=== PATIENT | male | born 1950 | race Caucasian/White ===

== ENCOUNTER 2020-06-26 18:18 | Inpatient (IN) | payer BC, OTHER ==
[~2020-06-26] VITALS: Ht 177.8 cm; Wt 61.2 kg
--- NOTE | 2020-06-26 19:01 | NUR ---
PT AAOX4. AMBULATORY, BIBPA FOR PSYCH EVAL FOR INCREASED EP OF SUICIDAL THOUGHTS, PT DOES NOT HAVE A PLAN. PT PLACED ON MONITOR AND PULSE OX. AWAITING MD FOR EVAL AND ORDERS.
[2020-06-26 19:45] LABS: BASOPHILS % (AUTO) 0.7 % (0.0-2.0); EOSINOPHILS % (AUTO) 3.2 % (0.0-6.0); HEMATOCRIT 39 % (39-51); HEMOGLOBIN 13.2 g/dL (13.5-17.5); LYMPHOCYTES # (AUTO) 2.2 /CMM (0.8-4.8); LYMPHOCYTES % (AUTO) 41.6 % (20.0-44.0); MEAN CORPUSCULAR HGB CONC 34 g/dl (31.0-36.0); MEAN CORPUSCULAR VOLUME 96 fL (80-96); MONOCYTES # (AUTO) 0.5 /CMM (0.1-1.30); MONOCYTES % (AUTO) 9.7 % (2.0-12.0); NEUTROPHILS # (AUTO) 2.3 /CMM (1.8-8.9); NEUTROPHILS % (AUTO) 44.8 % (43.0-81.0); PLATELET COUNT (AUTO) 202 /CMM (150-450); RED BLOOD CELL COUNT(AUTO) 4.11 MIL/uL (4.5-6.0); WHITE BLOOD COUNT (AUTO) 5.2 K/uL (4.3-11.0)
[2020-06-26 19:55] LABS: CALCIUM, SERUM 8.5 mg/dL (8.5-10.1); CARBON DIOXIDE 32 mmol/L (21-32); CHLORIDE 101 mmol/L (98-107); CREATININE 0.8 mg/dL (0.6-1.3); GLUCOSE 98 mg/dL (74-106); SODIUM SERUM 137 mmol/L (136-145); UREA NITROGEN, BLOOD 17 mg/dL (7-18)
[2020-06-26 20:01] LABS: ACETAMINOPHEN 0 ug/ml (10-30); ALANINE AMINOTRANSFERASE 49 U/L (12-78); ALBUMIN 3.6 g/dL (3.4-5.0); ALCOHOL, BLOOD < 3 mg/dL (0-0); ALKALINE PHOSPHATASE 99 U/L (46-116); ASPARTATE AMINOTRANSFERASE 34 U/L (15-37); BILIRUBIN,DIRECT 0.1 mg/dL (0.0-0.2); BILIRUBIN,TOTAL 0.3 mg/dL (0.2-1.0); TOTAL PROTEIN, SERUM 7.2 g/dL (6.4-8.2)
--- NOTE | 2020-06-26 20:08 | NUR ---
urine collected and sent to lab
[2020-06-26 20:16] LABS: APPEARANCE,URINE Clear (CLEAR); BILIRUBIN,URINE Negative (NEGATIVE); BLOOD, URINE Negative Ery/uL (NEGATIVE); COLOR,URINE Yellow (YELLOW); KETONES,URINE Negative (NEGATIVE); LEUKOCYTE ESTERASE ,URINE Negative (NEGATIVE); NITRITE, URINE Negative (NEGATIVE); PROTEIN,URINE Negative (NEGATIVE); UGLUCOSE Negative (NEGATIVE); UROBILINOGEN,URINE 0.2 EU/dL (0.2)
--- NOTE | 2020-06-26 20:39 | NUR ---
ZENIAID SWABBED, SENT TO LAB.
--- NOTE | 2020-06-26 21:40 | NUR ---
LAB CALLED REGARDING NEGATIVE COVID RESULT.
--- NOTE | 2020-06-26 22:01 | NUR ---
PT RESTING COMFORTABLY. VSS.
[2020-06-26] MEDS ORDERED: DIVA-78 PO (22:25)
[2020-06-26] MEDS ORDERED: PHEN125O9 PO (22:25)
--- NOTE | 2020-06-26 22:26 | NUR ---
MED LIST UPDATED.
--- NOTE | 2020-06-26 22:57 | NUR ---
REPORT GIVEN TO VIRIDIANA ENCINAS FOR AWILDA
--- NOTE | 2020-06-26 23:09 | NUR ---
GPS ADMISSION NOTE, RECEIVED PATIENT FROM [facility]. PATIENT ARRIVED ON THIS UNIT AT 2309 VIA STRETCHER 1 WEB DESIGN INTERN ESCORT. PATIENT ADMITTED ON A 5150 HOLD FOR GD. PER HOLD PATIENT NOT RESPONDING TO QUESTIONS PROPERLY. PATIENT WAS TALKING OUT OF TERN. PATIENT WALKS OUT OF WHERE HE IS LIVING WITHOUT PERMISSION. PER REFERRAL PATIENT IS HAVING SUICIDAL IDEATIONS WITH NO PLAN. PATIENT HAS NO VIABLE PLAN FOR SELF CARE AT THIS TIME. THE 5150 WAS REVIEWED AND THE DOCUMENTATION IN THE 5150 HOLD APPEARS TO REFLECT THE PRESENTATION OF THE PATIENT. UPON FACE TO FACE ASSESSMENT PATIENT IS NOTED TO BEING HYPERVERBAL, DISHEVELED, DISORGANIZED, COOPERATIVE, AND NEEDS REDIRECTION. PATIENT IS CURRENTLY LYING IN BED AWAKE, HAS NO S/S OR COMPLAINTS OF PAIN. PATIENT IS DISPLAYING NO S/S OF APPARENT DISTRESS. PATIENT BREATHING IS UNLABORED WITH EQUAL RISE AND FALL OF THE CHEST. PATIENT IS ALERT AND ORIENTATED X 2 ON ROOM AIR. PATIENT ASSISTED WITH TURING AND REPOSITIONING Q2HR AND PRN FOR COMFORT AND CIRCULATION. PATIENT HAS NO NEEDS AT THIS TIME. PATIENT DENIES SUICIDE IDEATIONS AND HOMICIDAL IDEATIONS AT THIS TIME. PATIENT SIGNED ALL NECESSARY PAPER WORK. PATIENT ADVISED OF HIS HOLD AND PATIENT RIGHTS BOOKLET GIVEN. PATIENT IS UNDER THE PSYCHIATRIC CARE OF DR. GUAMAN AND THE MEDICAL CARE OF DR JACKSON. PATIENT BELONGINGS WERE INVENTORIED AND CHECKED FOR CONTRABAND. ALL CONTRABAND REMOVED AND STORED IN PATIENT HALLWAY LOCKER. PATIENT ADVANCED DIRECTIVES PREFERENCE, IMMUNIZATIONS QUESTIONER, NECESSARY PAPERWORK COMPLETED. PATIENT COOPERATED WITH SKIN ASSESSMENT. PATIENT REFUSED FLU SHOT PNA AT THIS TIME. PATIENT ORIENTATED TO ROOM, FLOOR, AND STAFF WITH ALL QUESTIONS ANSWERED. PATIENT EDUCATED ON THE USE OF THE CALL HARRISON. PATIENT BED SIDE RAILS ARE UP X 2 FOR SAFETY. PATIENT BED IS LOCKED, LOW AND I WILL CONTINUE TO MONITOR THIS PATIENT Q 15 MIN WITH THE HELP OF STAFF TO MAINTAIN SAFETY.
[2020-06-26 23:25] VITALS: BP 140/86
--- NOTE | 2020-06-26 23:25 | NUR ---
GPS RN NOTES: BLOOD SUGAR 92MG/DL.
[2020-06-27] MEDS ORDERED: BLOOD SUGAR DIAGNOSTIC 1 EACH STRIP IN ONE
[2020-06-27] MEDS ORDERED: clonazePAM 0.5 MG TABLET PO PRN
[2020-06-27] MEDS ORDERED: ACETAMINOPHEN 325 MG TABLET PO PRN
[2020-06-27] MEDS ORDERED: MAG HYDROX/AL HYDROX/SIMETH 30 ML UDC PO PRN
[2020-06-27] MEDS ORDERED: TEMAZEPAM 7.5 MG CAPSULE PO PRN
[2020-06-27] MEDS ORDERED: PHEN100C4 PO (01:48)
[2020-06-27] MEDS ORDERED: DIVA-78 PO (01:50)
--- NOTE | 2020-06-27 08:00 | NUR ---
received pt. in rm.quiet,isolative,no complaints.rn removed bandaid to laceration rt. forearm,cleansed and tegaderm applied.
[2020-06-27 08:06] VITALS: BP 148/93
[2020-06-27] MEDS: PHENYTOIN EXTENDED RELEASE 100 MG CAPSULE PO SCH ×2 (09:54→17:26)
[2020-06-27] MEDS: DIVALPROEX SODIUM 500 MG TABLET.DR PO SCH ×2 (09:54→17:26)
[2020-06-27] MEDS: OLANZAPINE 5 MG TABLET PO SCH (15:11)
[2020-06-27 16:20] VITALS: BP 129/88
--- NOTE | 2020-06-27 16:46 | NUR ---
no change in status,zyprexa started.
[2020-06-27 20:08] VITALS: BP 115/75
[2020-06-28 06:46] LABS: BASOPHILS % (AUTO) 0.6 % (0.0-2.0); EOSINOPHILS % (AUTO) 3.5 % (0.0-6.0); HEMATOCRIT 45 % (39-51); HEMOGLOBIN 14.6 g/dL (13.5-17.5); LYMPHOCYTES # (AUTO) 1.8 /CMM (0.8-4.8); LYMPHOCYTES % (AUTO) 32.1 % (20.0-44.0); MEAN CORPUSCULAR HGB CONC 33 g/dl (31.0-36.0); MEAN CORPUSCULAR VOLUME 96 fL (80-96); MONOCYTES # (AUTO) 0.4 /CMM (0.1-1.30); MONOCYTES % (AUTO) 6.3 % (2.0-12.0); NEUTROPHILS # (AUTO) 3.2 /CMM (1.8-8.9); NEUTROPHILS % (AUTO) 57.5 % (43.0-81.0); PLATELET COUNT (AUTO) 227 /CMM (150-450); RED BLOOD CELL COUNT(AUTO) 4.66 MIL/uL (4.5-6.0); WHITE BLOOD COUNT (AUTO) 5.6 K/uL (4.3-11.0)
[2020-06-28 06:47] LABS: CREATININE 0.7 mg/dL (0.6-1.3); POTASSIUM 4.4 mmol/L (3.5-5.1)
--- NOTE | 2020-06-28 07:06 | NUR ---
chief controller station closing notes pt woke up early around 5 am and seen doing his puzzle, calmed, cooperative and slept well. only noticed SUN'AQ . Ambulate by himslef but needs someone like standby for safety. be alarm still set for pt safety. no signs of any behavioral issue to report at this time. stable throughout the night . will continue Q 15 minutes monitoring for safety and behavior. will endorse to am nurse for continuity of care.
[2020-06-28 08:00] VITALS: BP 125/81
[2020-06-28] MEDS: DIVALPROEX SODIUM 500 MG TABLET.DR PO SCH ×2 (08:33→16:27)
[2020-06-28] MEDS: PHENYTOIN EXTENDED RELEASE 100 MG CAPSULE PO SCH ×2 (08:33→16:27)
[2020-06-28] MEDS: OLANZAPINE 5 MG TABLET PO SCH (08:33)
--- NOTE | 2020-06-28 09:00 | NUR ---
RN NOTE- PT QUIET DISORGANIZED, CONFUSED DENYING SI HI AH VH, PT ISOLATIVE THOUGH ENCOURAGED SHOWER AND GROOMING, PT AGREES. MED COMPLIANT, PO INTAKE GOOD
[2020-06-28 16:00] VITALS: BP 126/76
--- NOTE | 2020-06-28 19:52 | NUR ---
GPS RN OPENING NOTES PATIENT RECEIVED RESTING IN BED COMFORTABLY; A/OX2, BREATHING EVEN AND UNLABORED; TOLERATING ROOM AIR WELL; NO SOB NOTED; NO DISTRESS NOTED; PATIENT DENIES SI/HI AT THIS TIME; PATIENT EDUCATED ON USE OF CALL LIGHT; SAFETY PRECAUTIONS IMPLEMENTED; BED LOCKED IN LOW POSITION; SIDE RAILSX2; WILL CONTINUE TO MONITOR Q15 MINS WITH THE HELP OF STAFF TO MAINTAIN SAFETY
[2020-06-28 20:00] VITALS: BP 125/84
[2020-06-29 08:00] VITALS: BP 122/78
[2020-06-29] MEDS: OLANZAPINE 5 MG TABLET PO SCH (08:35)
[2020-06-29] MEDS: DIVALPROEX SODIUM 500 MG TABLET.DR PO SCH ×2 (08:35→16:48)
[2020-06-29] MEDS: PHENYTOIN EXTENDED RELEASE 100 MG CAPSULE PO SCH ×2 (08:35→16:48)
--- NOTE | 2020-06-29 09:00 | NUR ---
RN NOTE- DISORGANIZED, CONFUSED DENYING SI HI AH VH, PT ISOLATIVE THOUGH PT CONTINUES TO BE MED COMPLIANT, PO INTAKE GOOD
--- NOTE | 2020-06-29 11:53 | NUR ---
Initial Discharge Plan: Pt currently rents a room in a house located at [address] [place] [address]; ([phone]). Per pt, he would like to return to his home. SW will work with the pt and the MD regarding appropriate discharge planning. SW will form a safe and proper discharge plan.
--- NOTE | 2020-06-29 11:53 | NUR ---
Atul Contact: TAB called the pts Re waite ([phone]), and confirmed that the pt can return to the room that he rents and that he is able to make his payments in a timely manner.
--- NOTE | 2020-06-29 14:53 | NUR ---
UR Note: TAB faxed a clinical to [facility] with attention to Sylvie Malcolm to the fax number: [phone].
[2020-06-29 16:00] VITALS: BP 135/91
[2020-06-29 19:51] VITALS: BP 147/84
[2020-06-29 20:09] VITALS: BP 147/84
[2020-06-30 08:00] VITALS: BP 137/90
[2020-06-30] MEDS: OLANZAPINE 5 MG TABLET PO SCH (08:19)
[2020-06-30] MEDS: DIVALPROEX SODIUM 500 MG TABLET.DR PO SCH ×2 (08:20→17:41)
[2020-06-30] MEDS: PHENYTOIN EXTENDED RELEASE 100 MG CAPSULE PO SCH ×2 (08:20→17:41)
[2020-06-30 16:00] VITALS: BP 138/75
[2020-06-30 20:03] VITALS: BP 120/77
[2020-06-30] MEDS: MAGNESIUM HYDROXIDE 30 ML UDC PO PRN (23:02)
--- NOTE | 2020-06-30 23:04 | NUR ---
GPS RN NOTE: CONSTIPATION PT WOKE UP C/O OF INABILITY TO DEFECATE FOR THE LAST SEVERAL DAYS, OFFERED PRUNE JUICE, PT DENIES OFFERED MILK OF MAGNESIA PT ACCEPTED, ADMIN MILK OF MAGNESIA PRN AT @ 2302, TOLERATED WELL, WILL CONTINUE TO MONITOR Q15MIN FOR SAFETY AND BEHAVIOR.
[2020-07-01 08:00] VITALS: BP 116/86
[2020-07-01] MEDS: OLANZAPINE 5 MG TABLET PO SCH (09:51)
[2020-07-01] MEDS: PHENYTOIN EXTENDED RELEASE 100 MG CAPSULE PO SCH ×2 (09:52→18:35)
[2020-07-01] MEDS: DIVALPROEX SODIUM 500 MG TABLET.DR PO SCH ×2 (09:52→18:35)
--- NOTE | 2020-07-01 12:16 | NUR ---
UR Note: TAB faxed a clinical to [facility] with attention to Sylvie Malcolm to the fax number: [phone].
--- NOTE | 2020-07-01 15:34 | NUR ---
Individual Intervention with the pt: SW attempted to conduct an individual intervention with the pt but the pts thought process was disorganized. Pts speech was tangential and SW was unable to discuss the pts goals.
[2020-07-01 16:00] VITALS: BP 152/91
[2020-07-01] MEDS ORDERED: INFLUENZA VACCINE 2020-21 0.5 ML DISP.SYRIN IM ONE (16:00)
[2020-07-01 20:00] VITALS: BP 149/89
--- NOTE | 2020-07-01 23:26 | NUR ---
GPS RN NOTE TRANSFERRED PT UPSTAIRS FOR OVERFLOW @2320, , PT IS NOW IN 312B, PT IS AWAKE A/O X2, CALM, COMPLIANT, COOPERATIVE, HAS NO NEW CONCERNS. GAVE REPORT TO HUANG MCGRAW AND HOLD AND CHART IS IN NURSING STATION WITH CHARGE.
--- NOTE | 2020-07-01 23:30 | NUR ---
GPS OV RN NOTES RECEIVED GPS OVERFLOW BY WHEELCHAIR A/O X2,CALM,MED COMPLIANT,HARD OF HEARING,AMBULATE WITH WALKER,CONTINENT,BRP.ON 5250 HOLD, UP ON 07/13/20.NO IV SALINE LOCK PER GPS PROTOCOL.WILL CONTINUE TO MONITOR BEHAVIOR.SITTER AT BEDSIDE.
--- NOTE | 2020-07-02 01:22 | NUR ---
GPS ZITA ENCINAS NOTES C/O ITCHINESS,VISTARIL 25MG PO GIVEN ORDERED. Addendum: 07/02/20 at 0239 by ANA HAMEED RN NOTES NOT FOR THIS PATIENT
--- NOTE | 2020-07-02 06:20 | NUR ---
GPS RN NOTES SLEPT WELL,CALM AND FOLLOW INSTRUCTION.SITTER AT BEDSIDE.WILL CONTINUE TO MONITOR BEHAVIOR AND MANAGE ACCORDINGLY.WILL ENDORSE TO DAY NURSE FOR FURTHER MONITORING.
--- NOTE | 2020-07-02 07:16 | NUR ---
GPS OVERFLOW RN OPENING NOTES PATIENT RECEIVED AWAKE IN BED IN NO ACUTE SIGNS OF DISTRESS. 1:1 SITTER AT BEDSIDE. A/OX2, VERBALLY RESPONSIVE, QUIET, CALM WITH NO C/O PAIN OR DISCOMFORTS AT THIS TIME. PATIENT ALSO DENIES SI/HI. ON ROOM AIR, BREATHING EVEN AND UNLABORED. SAFETY PRECAUTIONS IN PLACE: BED LOCKED AND IN LOW POSITION, SIDE RAILS UP X2 AND CALL LIGHT W/IN REACH. WILL CONTINUE TO MONITOR ACCORDINGLY.
[2020-07-02 08:00] VITALS: BP 131/78
[2020-07-02] MEDS: PHENYTOIN EXTENDED RELEASE 100 MG CAPSULE PO SCH ×2 (08:36→16:38)
[2020-07-02] MEDS: OLANZAPINE 5 MG TABLET PO SCH (08:36)
[2020-07-02] MEDS: DIVALPROEX SODIUM 500 MG TABLET.DR PO SCH ×2 (08:36→16:38)
--- NOTE | 2020-07-02 08:36 | NUR ---
RN NOTES PT JUST HAD SHOWER WITH NO PROBLEM NOTED. WILL CONTINUE TO MONITOR
[2020-07-02 16:00] VITALS: BP 124/76
--- NOTE | 2020-07-02 18:40 | NUR ---
GPS OVERFLOW RN CLOSING NOTES PATIENT IN BED RESTING QUIETLY. HOB ELEVATED. 1:1 SITTER AT BEDSIDE. A/OX2, VERBALLY RESPONSIVE. PATIENT ALSO DENIES SI/HI. ON ROOM AIR, BREATHING EVEN AND UNLABORED, NO SOB NOTED DURING THE DAY. ALL NEEDS AND CARE ANTICIPATED AND MET. SAFETY PRECAUTIONS KEPT IN PLACE: BED LOCKED AND IN LOW POSITION, SIDE RAILS UP X2 AND CALL LIGHT W/IN REACH. WILL ENDORSE TO FIELD SERVICES ANALYST NURSE FOR AWILDA.
--- NOTE | 2020-07-02 19:30 | NUR ---
advanced practice psychiatric nurse initial notes received report from am nurse and seen pt in bed awake and alert watching TV at this time. denies any discomfort. He's calmed , cooperative, disorganized, [place] but complaint with the staff. aware where he at . kept him comfortable at all times. will continue monitoring. sitter at the bedside for safety.
--- NOTE | 2020-07-03 | NUR ---
machinist supervisor outside notes pt sleeping at this time. not in any distress noted. kept him warm and comfortable at all times. will continue monitoring. sitter at the bedside.
--- NOTE | 2020-07-03 07:12 | NUR ---
GPS OVERFLOW RN OPENING NOTES RECEIVED PT IN BED AWAKE, A/O X2.ABLE TO MAKE NEEDS KNOWN, QUIET, CALM AND DENIES PAIN OR DISCOMFORTS AT THIS TIME. PATIENT ALSO DENIES SI/HI. 1:1 SITTER AT BEDSIDE FOR CLOSE MONITORING. ON ROOM AIR, BREATHING EVEN AND UNLABORED. SAFETY PRECAUTIONS IN PLACE: BED LOCKED AND IN LOW POSITION, SIDE RAILS UP X2 AND CALL LIGHT W/IN REACH. WILL CONTINUE TO MONITOR ACCORDINGLY.
[2020-07-03 08:00] VITALS: BP 131/78
[2020-07-03] MEDS: DIVALPROEX SODIUM 500 MG TABLET.DR PO SCH ×2 (08:18→16:56)
[2020-07-03] MEDS: OLANZAPINE 5 MG TABLET PO SCH (08:18)
[2020-07-03] MEDS: PHENYTOIN EXTENDED RELEASE 100 MG CAPSULE PO SCH ×2 (08:18→16:56)
--- NOTE | 2020-07-03 13:23 | NUR ---
UR Note: TAB faxed a clinical to [facility] with attention to Mattie to the fax number: [phone].
[2020-07-03 16:00] VITALS: BP 105/76
--- NOTE | 2020-07-03 18:57 | NUR ---
GPS OVERFLOW RN CLOSING NOTES PATIENT AWAKE AND RESTING IN BED. HOB ELEVATED. 1:1 SITTER AT BEDSIDE FOR CLOSE MONITORING. A/OX2, VERBALLY RESPONSIVE. LEFT EAR HEARING AID IN PLACE. PATIENT ALSO DENIES SI/HI. ON ROOM AIR, BREATHING EVEN AND UNLABORED, NO SOB NOTED DURING THE DAY. ALL NEEDS AND CARE ANTICIPATED AND MET. SAFETY PRECAUTIONS KEPT IN PLACE: BED LOCKED AND IN LOW POSITION, SIDE RAILS UP X2 AND CALL LIGHT W/IN REACH. WILL ENDORSE TO SUPERVISOR NETWORK CONTROL OPERATORS NURSE FOR AWILDA.
--- NOTE | 2020-07-03 19:15 | NUR ---
MS RN OPENING NOTES: RECEIVED PATIENT IN BED,ASLEEP. NO S/S OF DISTRESS NOTED. CALL LIGHT WITHIN REACH. BED IN LOWEST AND LOCKED POSITION. WITH THE 1:1 SITTER AT THE BEDSIDE.
[2020-07-03 20:00] VITALS: BP 128/66
--- NOTE | 2020-07-04 06:36 | NUR ---
RN CLOSING NOTES: PATIENT RESTING IN BED, ASLEEP, AROUSABLE. CALL LIGHT WITHIN REACH. BED IN LOWEST AND LOCKED POSITION. NO S/S OF DISTRESS NOTED. NO COMPLAIN OF PAIN. WITH THE 1:1 SITTER AT THE BEDSIDE. PATIENT IS CALM DURING THE SHIFT. RESTED THROUGHOUT THE NIGHT.
--- NOTE | 2020-07-04 09:00 | NUR ---
RN NOTE: Patient endorsed by HUANG Sawant. In bed, awake, alert and oriented x3. Able to make needs known. On room air and tolerating well, saturation @ 98%. No suicidal/self harm ideation expressed when asked. Responds appropriately to questions. Sitter at bedside. Call light in reach. Bed locked, low and at semi mota's position. Side rails up x2. Safety ensured and observed. Will continue to monitor.
[2020-07-04] MEDS: DIVALPROEX SODIUM 500 MG TABLET.DR PO SCH ×2 (09:04→17:12)
[2020-07-04] MEDS: PHENYTOIN EXTENDED RELEASE 100 MG CAPSULE PO SCH ×2 (09:04→17:12)
[2020-07-04] MEDS: OLANZAPINE 5 MG TABLET PO SCH (09:04)
[2020-07-04 18:33] VITALS: BP 126/81
--- NOTE | 2020-07-04 18:56 | NUR ---
RN CLOSING NOTE: No acute changes noted on shift. Patient remains in bed and resting. Awake, alert and oriented x4. on RA saturating well @ 99%, No SOB and not in respiratory distress. No pain noted nor reported. Sitter at bedside. Call light in reach. Bed locked, low and at semi-mota's position. Side rails up x3. All due medications given. Needs attended and met. Safety ensured and observed. Will endorse to oncoming shift for AWILDA.
--- NOTE | 2020-07-04 19:30 | NUR ---
GPS RN NOTE RECEIVED PATIENT AWAKE, SEATED IN BED, WITH SAIGE LAM AT BEDSIDE. NO S/S OR COMPLAINTS OF PAIN AT THIS TIME. PATIENT IS DISPLAYING NO S/S OF APPARENT DISTRESS AT THIS TIME. PATIENT'S BREATHING IS UNLABORED WITH EQUAL RISE AND FALL OF THE CHEST. PATIENT IS ALERT AND ORIENTED X 2-3 ON ROOM AIR WITH SPO2 96%. PATIENT IS COMPLIANT WITH MEDICATION, DISORGANIZED, RESPONDING TO INTERNAL STIMULI, ANXIOUS AND COOPERATIVE. PATIENT VERBALLY DENIES SUICIDE IDEATIONS AND HOMICIDAL IDEATIONS AT THIS TIME. PATIENT ASSISTED WITH TURNING AND REPOSITIONING Q2HR AND PRN FOR COMFORT AND CIRCULATION. PATIENT HAS NO NEEDS AT THIS TIME. PATIENT EDUCATED ON THE USE OF THE CALL LIGHT. PATIENT BED SIDE RAILS UP X 2 FOR SAFETY, BED IS LOCKED AND LOW. WILL CONTINUE TO MONITOR Q15 MINS WITH THE HELP OF STAFF TO MAINTAIN SAFETY.
[2020-07-04 20:00] VITALS: BP 111/70
[2020-07-04] MEDS: MAGNESIUM HYDROXIDE 30 ML UDC PO PRN (22:54)
[2020-07-05 04:00] VITALS: BP 120/75
--- NOTE | 2020-07-05 07:47 | NUR ---
GPS/RN OPENING NOTES RECEIVED PATIENT IS IN BED. PATIENT IN NO APPARENT RESPIRATORY DISTRESS NOTED. NO COMPLAINED OF PAIN AT THIS TIME. PATIENT IS CALM AND VERBALIZED NO SUICIDAL OR HOMICIDAL SUICIDAL IDEATIONS AT THIS TIME. WILL CONTINUE TO MONITOR.
[2020-07-05] MEDS: PHENYTOIN EXTENDED RELEASE 100 MG CAPSULE PO SCH ×2 (09:00→18:01)
[2020-07-05] MEDS: DIVALPROEX SODIUM 500 MG TABLET.DR PO SCH ×2 (09:00→18:01)
[2020-07-05] MEDS: OLANZAPINE 5 MG TABLET PO SCH (09:00)
--- NOTE | 2020-07-05 14:42 | NUR ---
GPS/RN NOTES PATIENT TRANSFERRED TO GPS FLOOR. GIVE REPORT TO ANDIE ENCINAS FOR AWILDA.
[2020-07-05 16:00] VITALS: BP 124/65
[2020-07-05 19:58] VITALS: BP 130/81
[2020-07-06 08:00] VITALS: BP 132/85
--- NOTE | 2020-07-06 09:14 | NUR ---
UR Note: TAB faxed a clinical to [facility] with attention to Mattie to the fax number: [phone].
[2020-07-06] MEDS: PHENYTOIN EXTENDED RELEASE 100 MG CAPSULE PO SCH ×2 (12:04→16:40)
[2020-07-06] MEDS: DIVALPROEX SODIUM 500 MG TABLET.DR PO SCH ×2 (13:30→16:40)
--- NOTE | 2020-07-06 15:44 | NUR ---
Individual Intervention: This commercial lines underwriter met with pt for brief counseling. This commercial lines underwriter discussed pt's plan. Pt stated he would want to return back home. Pt appeared less paranoid and was interacting. Pt stated his sandraloramarjit Grimaldo is his support. This commercial lines underwriter actively listened.
[2020-07-06 16:00] VITALS: BP 140/86
[2020-07-06 19:52] VITALS: BP 116/70
[2020-07-07 08:00] VITALS: BP 119/85
--- NOTE | 2020-07-07 08:23 | NUR ---
UR Note: TAB faxed a clinical to [facility] with attention to Mattie to the fax number: [phone].
[2020-07-07] MEDS: OLANZAPINE 5 MG TABLET PO SCH (09:52)
[2020-07-07] MEDS: PHENYTOIN EXTENDED RELEASE 100 MG CAPSULE PO SCH ×2 (09:52→18:32)
[2020-07-07] MEDS: DIVALPROEX SODIUM 500 MG TABLET.DR PO SCH ×3 (09:52→18:32)
--- NOTE | 2020-07-07 11:15 | NUR ---
UR Note: This typewriter assembly and parts inspector has been faxing clinicals to [facility] with attention to Mattie (F:[phone]) per case hardener Molly's notes. AUTH: [id number] This typewriter assembly and parts inspector contacted other case hardener Sylvie Cm ([phone]) and left a voicemail to contact this typewriter assembly and parts inspector. This typewriter assembly and parts inspector also faxed clinicals to Sylvie.
--- NOTE | 2020-07-07 12:41 | NUR ---
UR Note: This ticket writer received a phone call from Mattie renal case manager from [employer] ([phone]) (P:[phone]) who stated she will authorize until August 09. AUTH: [id number]
[2020-07-07 16:00] VITALS: BP 152/99
[2020-07-07 20:02] VITALS: BP 141/88
[2020-07-08 08:00] VITALS: BP 131/94
--- NOTE | 2020-07-08 08:27 | NUR ---
UR Note: This automotive service writer received a phone call from Mattie case fitter from [employer] ([phone]) (P:[phone])sent daily clinicals. AUTH: [id number]
[2020-07-08] MEDS: OLANZAPINE 5 MG TABLET PO SCH (08:43)
[2020-07-08] MEDS: DIVALPROEX SODIUM 500 MG TABLET.DR PO SCH ×3 (08:43→17:10)
[2020-07-08] MEDS: PHENYTOIN EXTENDED RELEASE 100 MG CAPSULE PO SCH ×2 (08:43→17:10)
--- NOTE | 2020-07-08 11:44 | NUR ---
Atul Contact: TAB called the pts Re waite ([phone]) and notified that pt will return back home on 07/10. She is agreeable.
[2020-07-08 16:00] VITALS: BP 129/94
--- NOTE | 2020-07-08 18:06 | NUR ---
GPS RN NOTES PT AWAKE IN BED AT THIS. PT REMAINED STABLE THROUGHOUT SHIFT. PT KEPT CLEAN AND DRY. ALL CARE, NEEDS, MEDICATIONS AND TREATMENT ADMINISTERED ANTICIPATED PER ORDER. SAFETY PRECAUTIONS IN PLACE AND MAINTAINED AT ALL TIMES. BED IN LOWEST LOCKED POSITION, HOB ELEVATED, SIDE RAILS UP X 2, CALL LIGHT WITHIN REACH.
[2020-07-08 19:41] VITALS: BP 107/68
[2020-07-09 08:00] VITALS: BP 141/92
[2020-07-09] MEDS: OLANZAPINE 5 MG TABLET PO SCH (08:27)
[2020-07-09] MEDS: PHENYTOIN EXTENDED RELEASE 100 MG CAPSULE PO SCH ×2 (08:27→16:44)
[2020-07-09] MEDS: DIVALPROEX SODIUM 500 MG TABLET.DR PO SCH ×3 (08:27→16:44)
--- NOTE | 2020-07-09 09:18 | NUR ---
UR Note: This specification writer received a phone call from Mattie case resolution specialist from [employer] ([phone]) (P:[phone]) sent daily clinicals. AUTH: [id number]
[2020-07-09 16:00] VITALS: BP 121/78
[2020-07-09 19:38] VITALS: BP 130/83
--- NOTE | 2020-07-09 19:46 | NUR ---
GPS-RN NOTE: ANXIETY PATIENT C/O FEELING ANXIOUS. ADMINISTERED KLONOPIN 0.5MG PO ORDERED. WILL CONTINUE TO MONITOR FOR PATIENT'S SAFETY.
[2020-07-10 08:00] VITALS: BP 135/90
[2020-07-10] MEDS: PHENYTOIN EXTENDED RELEASE 100 MG CAPSULE PO SCH (08:00)
[2020-07-10] MEDS: OLANZAPINE 5 MG TABLET PO SCH (08:00)
[2020-07-10] MEDS: DIVALPROEX SODIUM 500 MG TABLET.DR PO SCH ×2 (08:00→12:03)
--- NOTE | 2020-07-10 08:37 | NUR ---
SW Discharge Note: Patient will be discharged home [address] [place] [address]; ([phone]) via taxi transportation at 12PM. Patients cheyanneamarjit Re ([phone]) is aware and will greet pt upon arrival. Upon discharge, patient appear to be calm, cooperative and happy to be going home. Patient appeared alert and oriented x3-4. Patient denies suicidal and homicidal ideation. Patient will follow up with (Psychiatrist) Dr. Vaibhav Dewitt located at [address] [place] [address]; ([phone]) on July 16 at 1PM via telehealth. Patient will follow-up with (Oil Refiner) Dr. Khadra Lemons located at [address] [place] [address]; ([phone]) on July 15 at 2:30PM. Patient presented with euthymic mood and congruent affect
--- NOTE | 2020-07-10 14:00 | NUR ---
GPS/RN PT DISCHARGED HOME VIA TAXI WITH VOUCHER. PROPERTY RETURNED. NO SI/HI AND AVH REPORTED AT THE TIME OF DISCHARGE. PT IS AMBULATORY VSS NO DISTRESS REPORTED. EXIT CARE INSTRUCTIONS AND PRESCRIPTIONS GIVEN AND UNDERSTOOD ACCOMPANIED TO HOSPITAL LOBBY AND HELPED TO LOAD BELONGINGS TO THE CAB.
--- NOTE | 2020-07-15 08:41 | NUR ---
UR Note: TAB faxed a discharge clinical to [facility] with attention to Mattie to the fax number: [phone].
== END 2020-07-10 14:00 | disposition home or self-care (01) | DRG 885 ==
LOC: ER 18:27 → GPS 22:27 → GPSOV 07-01 23:16 → GPS 07-05 14:42
PROVIDERS: ADMIT Psychiatry & Neurology Psychiatry; ATTEND Internal Medicine
DX: F31.60 Bipolar disorder, current episode mixed, unspecified (principal); R45.851 Suicidal ideations; G40.909 Epilepsy, unspecified, not intractable, without status epilepticus; F41.9 Anxiety disorder, unspecified; F29 Unspecified psychosis not due to a substance or known physiological condition; H91.90 Unspecified hearing loss, unspecified ear; R53.1 Weakness
CPT/HCPCS: 36415; 80048-TC; 80061-TC; 80076-TC; 80164-TC; 81000-TC; 82962-TC; 85025-TC; 87081-TC; 97116-TC; 97530-TC; C9803; G0480; Q2036